=== PATIENT | male | born 1980 | race Caucasian/White ===

== ENCOUNTER 2019-11-14 08:28 | Day surgery (SDC) | payer BC ==
[2019-11-10 14:46] VITALS: BMI 25.2
[2019-11-14] MEDS ORDERED: PROPOFOL 20 ML ONE ×2 (09:23)
[2019-11-14 10:21] VITALS: BP 117/75; PULSE 86; TEMP 99.1
--- NOTE | 2019-11-17 16:50 | PATH ---
Surgical Pathology Report Patient Name: JESSICA LEAVITT [facility]. Rec. #: [id number] /Age/Gender: 1980 (Age: 38) / M Account: [id number] Location: [facility] Taken: 11/14/2019 Received: 11/14/2019 Reported: 11/17/2019 Physicians: Shailesh Honeycutt M.D. Specimen(s) Received A: ANTRUM B: BODY OF STOMACH C: DISTAL ESOPHAGUS Clinical History Heartburn, chest discomfort. Postoperative diagnosis: Gastritis, GERD, possible gastroparesis Final Diagnosis A. ANTRUM, BIOPSY: GASTRIC MUCOSA WITH CHRONIC GASTRITIS. IMMUNOSTAIN FOR H. PYLORI IS NEGATIVE. NEGATIVE FOR INTESTINAL METAPLASIA. B. BODY OF STOMACH, BIOPSY: GASTRIC MUCOSA WITH CHRONIC GASTRITIS. IMMUNOSTAIN FOR H. PYLORI IS NEGATIVE. NEGATIVE FOR INTESTINAL METAPLASIA. C. DISTAL ESOPHAGUS, BIOPSY: SQUAMOUS MUCOSA WITH MILD REFLUX ESOPHAGITIS. NEGATIVE FOR INTESTINAL METAPLASIA. Electronically Signed Toño Li M.D. Gross Description A. Received in formalin, labeled "antrum" are two rondon, irregular portions of soft tissue each measuring 0.3 cm. in greatest dimension. The specimen is submitted in toto in one cassette. B. Received in formalin, labeled "body of stomach" is a rondon, irregular portion of soft tissue measuring 0.3 cm. in greatest dimension. The specimen is submitted in toto in one cassette. C. Received in formalin, labeled "distal esophagus" are 2 rondon, irregular portions of soft tissue each measuring 0.3 cm. in greatest dimension. The specimens are submitted in toto in [one] cassette. AE/11/14/2019 ebram/11/14/2019
== END 2019-11-14 10:19 | disposition home or self-care (01) ==
LOC: FASU-ENDO 08:28
PROVIDERS: ATTEND Internal Medicine Gastroenterology
PROC: 0DB68ZX Excision of Stomach, Via Natural or Artificial Opening Endoscopic, Diagnostic (ICD-10-PCS; 2019-11-14)
PROC: 0DB38ZX Excision of Lower Esophagus, Via Natural or Artificial Opening Endoscopic, Diagnostic (ICD-10-PCS; principal; 2019-11-14 09:34)
DX: K29.50 Unspecified chronic gastritis without bleeding (principal); K21.0 Gastro-esophageal reflux disease with esophagitis; K21.9 Gastro-esophageal reflux disease without esophagitis; R10.13 Epigastric pain; R07.89 Other chest pain
CPT/HCPCS: 88305-TC; 88342-TC